=== PATIENT | female | born 1935 | race Caucasian/White ===

== ENCOUNTER 2017-05-16 11:19 | Inpatient (IN) | payer MEDICARE ==
[2017-05-16] MEDS ORDERED: PROVENTIL 2.5 MG/3 ML NEB IH ONE ×2 (11:43→11:56)
[2017-05-16] MEDS: PROVENTIL 2.5 MG/3 ML NEB IH SCH ×2 (12:00→20:14)
[2017-05-16] MEDS ORDERED: FEVERALL 650 MG PR PRN (12:03)
[2017-05-16] MEDS ORDERED: Colace 100 MG PO PRN (12:03)
[2017-05-16 12:05] LABS: A-aADO2 114; ABG HEMOGLOBIN 15.6; ABG POTASSIUM 4.6 (3.5-5.1); ARTERIAL BLD GAS O2 SATURATION 99.7 % (95-100); ARTERIAL BLOOD GAS BASE EXCESS -0.3 (-2.0-2.0); ARTERIAL BLOOD GAS FIO2 40 %; ARTERIAL BLOOD GAS PCO2 38 mmHg (35-45); ARTERIAL BLOOD GAS PO2 124 mmHg (75-100); ARTERIAL BLOOD GAS pH 7.41 (7.35-7.45); CARBOXYHEMOGLOBIN 1.7 % THgb (0.0-6.9); HCO3- 24.1 (22-28); HGB O2 SAT 96.8 g/dF (94-100); Methhemoglobin 1.1 % (1.4-1.5); paO2 pAO1 0.52
[2017-05-16 12:06] LABS: ABG SITE LEFT RADIAL; ALLEN TEST OK? YES
--- NOTE | 2017-05-16 12:12 | PCM.HP.ADD ---
Addendum to History & Physical - History & Physical Addendum Addendum to History & Physical: This certifies that the History & Physical in the electronic chart reflects the current health status of the patient. If there are changes in the H&P these changes/exceptions are listed as follows.
[2017-05-16] MEDS ORDERED: Sodium Chloride 0.9% 1000 ML 1,000 ML IV SCH (12:15)
--- NOTE | 2017-05-16 12:50 | XRAY ---
Indication: Short of breath. Comparison: August 28, 2014. PA/lateral chest unchanged again demonstrating chronic left hemidiaphragm elevation with adjacent lung atelectasis/scarring and incidental scattered calcified granulomas. Heart is not enlarged. Bony thorax intact again with mild osteopenia and degenerative changes. No new/acute findings. Impression: Stable nonacute chest with chronic features.
[2017-05-16 12:59] LABS: ALBUMIN 3.9 g/dL (3.5-5.0); BILIRUBIN,TOTAL 0.4 mg/dL (0.2-1.3); Calcium 9.9 mg/dL (8.4-10.2); Creatinine 1 1.12 mg/dL (0.52-1.04); Potassium 4.3 mmol/L (3.5-5.1); Total Protein 7.4 g/dL (6.3-8.2)
[2017-05-16 13:10] LABS: Hematocrit 47.5 % (35-47); Hemoglobin 15.3 gm/dl (12.0-16.0); Mean Cell Volume 91.9 fl (78-100); Mean Corpuscular Hemoglobin 29.6 pg (26-32); Mean Corpuscular Hgb Concent. 32.2 g/dl (32-36); Mean Platelet Volume 10.7 fl (6-9.5); Platelet Count 260 K/mm3 (150-450); Red Blood Count 5.17 M/mm3 (4.1-5.4); Red Cell Distribution Width 14.3 % (11.5-14.0); White Blood Count 11.8 K/mm3 (4.0-10.5)
[2017-05-16] MEDS ORDERED: PROVENTIL 2.5 MG/3 ML NEB IH PRN (13:12)
[2017-05-16 13:14] LABS: Basophil 1 % (0.0-1.0); Eosinophil 2 % (0.00-3.0); Lymphocytes 4 % (24-44); Monocyte 7 % (0.0-12.0); Neutrophils 86 % (36.0-66.0); Platelet Estimate NORMAL (NORMAL); Total Cells Counted 100
[2017-05-16] MEDS ORDERED: Nitrostat 0.4 MG Tablet SL PRN (13:46)
[2017-05-16] MEDS ORDERED: MEDICATION INTERVENTION MC SCH (14:00)
[2017-05-16] MEDS: ENOXAPARIN SODIUM SQ SCH (14:50)
[2017-05-16] MEDS: Catapres 0.1 MG PO SCH ×2 (14:50→22:43)
[2017-05-16 14:58] LABS: Lactic Acid 2.1 (0.4-2.0)
[2017-05-16 19:03] LABS: Appearance CLEAR (CLEAR)
[2017-05-16 19:04] LABS: Glucose NEGATIVE (NEGATIVE); Ketones NEGATIVE (NEGATIVE); Leukocyte Esterase 2+ (NEGATIVE); Nitrite NEGATIVE (NEGATIVE); Protein,Urine Dip NEGATIVE (Negative); Urobilinogen NORMAL mg/dL (0-1)
[2017-05-16 19:05] LABS: Bilirubin NEGATIVE (NEGATIVE); Blood TRACE HEMOLYZED Ery/ul (0-5)
[2017-05-16 19:06] LABS: Bacteria RARE /HPF (NEGATIVE); Epithelial Cells FEW /HPF (FEW); RBC 0-2 /HPF (0-2)
[2017-05-16] MEDS: Advair Hfa 115/21 Common canister IH SCH (20:25)
[2017-05-16] MEDS ORDERED: VITAMIN D3 PO SCH (22:00)
[2017-05-16] MEDS ORDERED: NON-FORMULARY ITEM (Mometasone/Formoterol [Dulera 200 Mcg/5 Mcg Inhaler] 2 PUFF) IH SCH (22:00)
[2017-05-16] MEDS ORDERED: CALCIUM CARBONATE PO SCH (22:00)
[2017-05-16] MEDS: ceLEXa 20 MG PO SCH (22:43)
[2017-05-16] MEDS: EFFEXOR 37.5 MG PO SCH (22:43)
[2017-05-16] MEDS: Calcium 500MG W/Vit D Tablet PO SCH (22:43)
[2017-05-17] MEDS: PROVENTIL 2.5 MG/3 ML NEB IH SCH ×4 (02:09→19:33)
[2017-05-17] MEDS: Advair Hfa 115/21 Common canister IH SCH ×2 (07:10→19:30)
[2017-05-17] MEDS ORDERED: DELTASONE 10 MG PO SCH (10:00)
[2017-05-17] MEDS ORDERED: NON-FORMULARY ITEM (Pravastatin Sodium [Pravastatin Sodium] 40 MG) PO SCH (10:00)
[2017-05-17] MEDS ORDERED: NON-FORMULARY ITEM (Cholecalciferol (Vitamin D3) [Vitamin D3] 2,000 UNIT) PO SCH (10:00)
[2017-05-17] MEDS: ceLEXa 20 MG PO SCH ×2 (11:18→21:51)
[2017-05-17] MEDS: Catapres 0.1 MG PO SCH ×3 (11:18→21:51)
[2017-05-17] MEDS: EFFEXOR 37.5 MG PO SCH ×2 (11:18→21:51)
[2017-05-17] MEDS: ZOCOR 20MG PO SCH (11:19)
[2017-05-17] MEDS: Lopressor 25MG Tab PO SCH (11:20)
[2017-05-17] MEDS: Calcium 500MG W/Vit D Tablet PO SCH ×2 (11:21→22:12)
[2017-05-17] MEDS: ECOTRIN 81 MG PO SCH (11:21)
[2017-05-17] MEDS: ENOXAPARIN SODIUM SQ SCH (11:22)
[2017-05-17] MEDS: ROCEPHIN 1 Gm-D5w 50 ml Bag** 1 G/50 ML IVPB IV SCH (11:22)
[2017-05-17] MEDS: solu-MEDROL 40 MG IV SCH ×2 (11:28→21:55)
[2017-05-17] MEDS: VITAMIN D PO SCH (11:41)
--- NOTE | 2017-05-17 11:52 | PCM.NOTE ---
Date and Time: 05/17/17 1151 Subjective Assessment: doing little - Review of Systems Constitutional: No Fever, No Chills Eyes: No Symptoms Ears, Nose, & Throat: No Symptoms Respiratory: No Cough, No Short Of Breath Cardiac: No Chest Pain, No Edema, No Syncope Abdominal/Gastrointestinal: No Abdominal Pain, No Nausea, No Vomiting, No Diarrhea Genitourinary Symptoms: No Dysuria Musculoskeletal: No Back Pain, No Neck Pain Skin: No Rash Neurological: No Dizziness, No Focal Weakness, No Sensory Changes Psychological: No Symptoms Endocrine: No Symptoms Hematologic/Lymphatic: No Symptoms Immunological/Allergic: No Symptoms Objective Exam General Appearance: no apparent distress, alert Neurologic Exam: alert, oriented x 3, cooperative, normal mood/affect, nml cerebellar function, sensation nml, No motor deficits Skin Exam: normal color, warm, dry Eye Exam: PERRL, EOMI, eyes nml inspection Ears, Nose, Throat Exam: normal ENT inspection, pharynx normal, moist mucous membranes Neck Exam: normal inspection, non-tender, supple, full range of motion Respiratory Exam: normal breath sounds, lungs clear, No respiratory distress Cardiovascular Exam: regular rate/rhythm, normal heart sounds Gastrointestinal/Abdomen Exam: soft, No tenderness, No mass Extremity Exam: normal inspection, normal range of motion Back Exam: normal inspection, normal range of motion, No CVA tenderness, No vertebral tenderness Pelvic Exam: deferred Rectal Exam: deferred OBJECTIVE DATA Vital Signs: Vital Signs - 24 hr Temp Pulse Resp BP Pulse Ox 05/17/17 09:00 18 05/17/17 08:41 95 05/17/17 07:40 97.9 F 80 18 166/74 97 05/17/17 07:10 71 18 95 05/17/17 05:00 18 05/17/17 04:00 97.9 F 86 20 123/75 94 L 05/17/17 02:00 72 20 93 L 05/17/17 01:00 20 05/17/17 00:00 97.9 F 72 20 175/86 95 05/16/17 21:00 18 05/16/17 20:25 62 22 97 05/16/17 20:00 97.9 F 67 18 140/73 93 L 05/16/17 17:00 22 05/16/17 16:00 98.1 F 68 16 111/65 95 05/16/17 13:00 16 96 05/16/17 12:00 96.1 F 68 24 111/59 97 05/16/17 11:55 96.1 F 64 26 H 111/59 97 Oxygen-Last 24 hours O2 Percentage 2 Liters = 28% O2 Percentage 2 Liters = 28% O2 Percentage 2 Liters = 28% O2 Percentage 2 Liters = 28% O2 Percentage 2 Liters = 28% O2 Percentage 2 Liters = 28% O2 Percentage 2 Liters = 28% Pain Assessment - Last Documented Pain Scale Used FLACC Intake and Output: Intake & Output 05/14/17 05/15/17 05/16/17 05/17/17 11:59 11:59 11:59 11:59 Intake Total 1790 Output Total 1300 Balance 490 Weight 69.4 kg Lab Results: Lab Results-Last 24 Hours 05/16/17 05/16/17 05/16/17 Range/Units 11:55 12:03 12:10 WBC 11.8 H (4.0-10.5) K/mm3 RBC 5.17 (4.1-5.4) M/mm3 Hgb 15.3 (12.0-16.0) gm/dl Hct 47.5 H (35-47) % MCV 91.9 (78-100) fl MCH 29.6 (26-32) pg MCHC 32.2 (32-36) g/dl RDW 14.3 H (11.5-14.0) % Plt Count 260 (150-450) K/mm3 MPV 10.7 H (6-9.5) fl Gran % RESIDENTIAL AIDE Eos # (Auto) RESIDENTIAL AIDE Absolute Lymphs (auto) RESIDENTIAL AIDE Absolute Monos (auto) RESIDENTIAL AIDE Lymphocytes % RESIDENTIAL AIDE Monocytes % RESIDENTIAL AIDE Eosinophils % RESIDENTIAL AIDE Basophils % RESIDENTIAL AIDE Absolute Granulocytes RESIDENTIAL AIDE Segmented Neutrophils 86 H (36.0-66.0) % Lymphocytes (Manual) 4 L (24-44) % Monocytes (Manual) 7 (0.0-12.0) % Eosinophils (Manual) 2 (0.00-3.0) % Basophils (Manual) 1 (0.0-1.0) % Basophils # RESIDENTIAL AIDE Differential Comment NORMAL Platelet Estimate NORMAL (NORMAL) Puncture Site LEFT RADIAL pCO2 38 (35-45) mmHg pO2 124 H* (75-100) mmHg Base Excess -0.3 (-2.0-2.0) O2 Saturation 96.8 (94-100) g/dF ABG pH 7.41 (7.35-7.45) ABG HCO3 24.1 (22-28) ABG O2 Sat (Measured) 99.7 (95-100) % Reynaldo Test YES A-a Gradient 114 a/A Ratio 0.52 Hemoglobin 15.6 Carboxyhemoglobin 1.7 (0.0-6.9) % THgb Methemoglobin 1.1 L (1.4-1.5) % Potassium 4.6 4.3 (3.5-5.1) Temperature 37.0 C POC O2 Flow Rate 40 % Sodium 139 (137-145) mmol/L Chloride 100 (98-107) mmol/L Carbon Dioxide 28 (22-30) mmol/L Anion Gap 15.0 (5-15) MEQ/L BUN 12 (7-17) mg/dL Creatinine 1.12 H (0.52-1.04) mg/dL Estimated GFR 49.6 ML/MIN Glucose 106 (74-106) mg/dL Lactic Acid 3.0 H (0.4-2.0) Calcium 9.9 (8.4-10.2) mg/dL Total Bilirubin 0.40 (0.2-1.3) mg/dL AST 22 (14-36) U/L ALT 19 (0-35) U/L Alkaline Phosphatase 53 (38-126) U/L NT-Pro-B Natriuret Pep 322 (0-1800) pg/mL Serum Total Protein 7.4 (6.3-8.2) g/dL Albumin 3.9 (3.5-5.0) g/dL Ur Collection Type Urine Color (YELLOW) Urine Appearance (CLEAR) Urine pH (5-6) Ur Specific [place] (1.005-1.025) Urine Protein (Negative) Urine Ketones (NEGATIVE) Urine Blood (0-5) Hans/ul Urine Nitrite (NEGATIVE) Urine Bilirubin (NEGATIVE) Urine Urobilinogen (0-1) mg/dL Ur Leukocyte Esterase (NEGATIVE) Urine Microscopic RBC (0-2) /HPF Urine Microscopic WBC (0-5) /HPF Ur Epithelial Cells (FEW) /HPF Urine Bacteria (NEGATIVE) /HPF Urine Glucose (NEGATIVE) mg/dL Specimen Received 05/16/17 05/16/17 Range/Units 14:55 18:55 WBC (4.0-10.5) K/mm3 RBC (4.1-5.4) M/mm3 Hgb (12.0-16.0) gm/dl Hct (35-47) % MCV (78-100) fl MCH (26-32) pg MCHC (32-36) g/dl RDW (11.5-14.0) % Plt Count (150-450) K/mm3 MPV (6-9.5) fl Gran % Eos # (Auto) Absolute Lymphs (auto) Absolute Monos (auto) Lymphocytes % Monocytes % Eosinophils % Basophils % Absolute Granulocytes Segmented Neutrophils (36.0-66.0) % Lymphocytes (Manual) (24-44) % Monocytes (Manual) (0.0-12.0) % Eosinophils (Manual) (0.00-3.0) % Basophils (Manual) (0.0-1.0) % Basophils # Differential Comment Platelet Estimate (NORMAL) Puncture Site pCO2 (35-45) mmHg pO2 (75-100) mmHg Base Excess (-2.0-2.0) O2 Saturation (94-100) g/dF ABG pH (7.35-7.45) ABG HCO3 (22-28) ABG O2 Sat (Measured) (95-100) % Reynaldo Test A-a Gradient a/A Ratio Hemoglobin Carboxyhemoglobin (0.0-6.9) % THgb Methemoglobin (1.4-1.5) % Potassium (3.5-5.1) Temperature C POC O2 Flow Rate % Sodium (137-145) mmol/L Chloride (98-107) mmol/L Carbon Dioxide (22-30) mmol/L Anion Gap (5-15) MEQ/L BUN (7-17) mg/dL Creatinine (0.52-1.04) mg/dL Estimated GFR ML/MIN Glucose (74-106) mg/dL Lactic Acid 2.1 H (0.4-2.0) Calcium (8.4-10.2) mg/dL Total Bilirubin (0.2-1.3) mg/dL AST (14-36) U/L ALT (0-35) U/L Alkaline Phosphatase (38-126) U/L NT-Pro-B Natriuret Pep (0-1800) pg/mL Serum Total Protein (6.3-8.2) g/dL Albumin (3.5-5.0) g/dL Ur Collection Type CCMS Urine Color YELLOW (YELLOW) Urine Appearance CLEAR (CLEAR) Urine pH 7.0 (5-6) Ur Specific [place] 1.010 (1.005-1.025) Urine Protein NEGATIVE (Negative) Urine Ketones NEGATIVE (NEGATIVE) Urine Blood TRACE HEMOLYZED (0-5) Hans/ul Urine Nitrite NEGATIVE (NEGATIVE) Urine Bilirubin NEGATIVE (NEGATIVE) Urine Urobilinogen NORMAL (0-1) mg/dL Ur Leukocyte Esterase 2+ (NEGATIVE) Urine Microscopic RBC 0-2 (0-2) /HPF Urine Microscopic WBC 5-10 (0-5) /HPF Ur Epithelial Cells FEW (FEW) /HPF Urine Bacteria RARE (NEGATIVE) /HPF Urine Glucose NEGATIVE (NEGATIVE) mg/dL Specimen Received T@[id number] Radiology Exams: Radiology Procedures Category Date Time Status CHEST 2 VIEWS (PA AND LAT) Stat Exams 05/16/17 12:31 Completed ECHO W/2D AND DOPPLER [US] Routine Exams 05/16/17 12:05 Taken Multi-Disciplinary Progress Notes: Multi-Disciplinary Progress Notes 05/16/17 20:23 Respiratory Note by Valeria Miller pt's family took her dulera home. changed to advair 115/21 bid. pt was fine with that. Initialized on 05/16/17 20:23 - END OF NOTE Assessment/Plan (1) COPD exacerbation Current Visit: Yes Status: Acute Code(s): J44.1 - CHRONIC OBSTRUCTIVE PULMONARY DISEASE W (ACUTE) EXACERBATION (2) HTN (hypertension) Current Visit: Yes Status: Acute Qualifiers: Hypertension type: essential hypertension Qualified Code(s): I10 - Essential (primary) hypertension Code(s): I10 - ESSENTIAL (PRIMARY) HYPERTENSION
--- NOTE | 2017-05-17 14:50 | XRAY ---
Indication: Difficulty swallowing. Patient choked on Jell-O this a.m. Single contrast esophagram performed in the anterior, oblique, and lateral plane. No miss swallow or aspiration. Esophagus is normal in course and caliber without focal stricture, ulceration, or filling defect. Barium freely emptied into the stomach. No hiatal hernia. Impression: Negative esophagram. Approximately 0.4 minute fluoroscopy used.
[2017-05-18] MEDS: PROVENTIL 2.5 MG/3 ML NEB IH SCH ×3 (01:54→13:04)
[2017-05-18] MEDS: Advair Hfa 115/21 Common canister IH SCH (07:06)
[2017-05-18] MEDS: ROCEPHIN 1 Gm-D5w 50 ml Bag** 1 G/50 ML IVPB IV SCH (09:54)
[2017-05-18] MEDS: ENOXAPARIN SODIUM SQ SCH (09:54)
[2017-05-18] MEDS: solu-MEDROL 40 MG IV SCH (09:55)
--- NOTE | 2017-05-18 11:25 | PCM.NOTE ---
Date and Time: 05/18/17 1123 Subjective Assessment: still short of breath, barrium swollow negative - Review of Systems Constitutional: No Fever, No Chills Eyes: No Symptoms Ears, Nose, & Throat: No Symptoms Respiratory: No Cough, No Short Of Breath Cardiac: No Chest Pain, No Edema, No Syncope Abdominal/Gastrointestinal: No Abdominal Pain, No Nausea, No Vomiting, No Diarrhea Genitourinary Symptoms: No Dysuria Musculoskeletal: No Back Pain, No Neck Pain Skin: No Rash Neurological: No Dizziness, No Focal Weakness, No Sensory Changes Psychological: No Symptoms Endocrine: No Symptoms Hematologic/Lymphatic: No Symptoms Immunological/Allergic: No Symptoms Objective Exam General Appearance: no apparent distress, alert Neurologic Exam: alert, oriented x 3, cooperative, normal mood/affect, nml cerebellar function, sensation nml, No motor deficits Skin Exam: normal color, warm, dry Eye Exam: PERRL, EOMI, eyes nml inspection Ears, Nose, Throat Exam: normal ENT inspection, pharynx normal, moist mucous membranes Neck Exam: normal inspection, non-tender, supple, full range of motion Respiratory Exam: normal breath sounds, lungs clear, No respiratory distress Cardiovascular Exam: regular rate/rhythm, normal heart sounds Gastrointestinal/Abdomen Exam: soft, No tenderness, No mass Extremity Exam: normal inspection, normal range of motion Back Exam: normal inspection, normal range of motion, No CVA tenderness, No vertebral tenderness Pelvic Exam: deferred Rectal Exam: deferred OBJECTIVE DATA Vital Signs: Vital Signs - 24 hr Temp Pulse Resp BP Pulse Ox 05/18/17 09:00 22 05/18/17 08:00 98 F 72 22 188/95 94 L 05/18/17 07:00 72 18 94 L 05/18/17 05:00 18 05/18/17 04:00 98.0 F 76 20 193/91 92 L 05/18/17 01:55 69 18 92 L 05/18/17 01:00 18 05/17/17 23:42 98.0 F 75 18 144/80 93 L 05/17/17 21:00 17 05/17/17 20:00 97.9 F 74 17 189/82 95 05/17/17 19:30 69 18 96 05/17/17 16:00 97.6 F 73 20 137/71 92 L 05/17/17 13:29 78 18 96 05/17/17 13:00 20 05/17/17 12:00 98.2 F 88 22 172/88 92 L Oxygen-Last 24 hours O2 Percentage 2 Liters = 28% O2 Percentage 2 Liters = 28% O2 Percentage 2 Liters = 28% O2 Percentage 2 Liters = 28% O2 Percentage 2 Liters = 28% O2 Percentage 2 Liters = 28% Pain Assessment - Last Documented Pain Intensity 6 Pain Scale Used 0-10 Pain Scale Intake and Output: Intake & Output 05/15/17 05/16/17 05/17/17 05/18/17 11:59 11:59 11:59 11:59 Intake Total 1790 1380 Output Total 1300 2300 Balance 490 -920 Weight 69.4 kg Radiology Exams: Radiology Procedures Category Date Time Status CHEST 2 VIEWS (PA AND LAT) Stat Exams 05/16/17 12:31 Completed ECHO W/2D AND DOPPLER [US] Routine Exams 05/16/17 12:05 Taken ESOPHOGRAM [BARIUM SWALLOW ESOPHOGRAM] Urgent Exams 05/17/17 14:37 Completed MODIFIED BARIUM SWALLOW EXAM Urgent Exams 05/18/17 11:00 Ordered Assessment/Plan (1) COPD exacerbation Current Visit: Yes Status: Acute Code(s): J44.1 - CHRONIC OBSTRUCTIVE PULMONARY DISEASE W (ACUTE) EXACERBATION (2) HTN (hypertension) Current Visit: Yes Status: Acute Qualifiers: Hypertension type: essential hypertension Qualified Code(s): I10 - Essential (primary) hypertension Code(s): I10 - ESSENTIAL (PRIMARY) HYPERTENSION (3) Odynophagia Current Visit: Yes Status: Acute Code(s): R13.10 - DYSPHAGIA, UNSPECIFIED
[2017-05-18 12:23] VITALS: BP 172/84
[2017-05-18] MEDS: ECOTRIN 81 MG PO SCH (12:40)
[2017-05-18] MEDS: ceLEXa 20 MG PO SCH (12:40)
[2017-05-18] MEDS: VITAMIN D PO SCH (12:40)
[2017-05-18] MEDS: Calcium 500MG W/Vit D Tablet PO SCH (12:41)
[2017-05-18] MEDS: Lopressor 25MG Tab PO SCH (12:41)
[2017-05-18] MEDS: ZOCOR 20MG PO SCH (12:41)
[2017-05-18] MEDS: EFFEXOR 37.5 MG PO SCH (12:41)
[2017-05-18] MEDS: Catapres 0.1 MG PO SCH (12:41)
[2017-05-18 13:14] VITALS: PULSE 81; O2SAT 95
--- NOTE | 2017-05-18 13:17 | CONS ---
CONSULT DATE: 05/18/2017 HISTORY: Comfort Reynoso is an 82 year-old pleasant woman known to me seen about four months ago in January, with history of obstructive airway disease, who has been admitted with shortness of breath. According to the patient's daughter she stopped using nebulizer at home leading to increased secretions, cough and chest congestion. The patient also was experiencing some dysphagia. She had a barium swallow performed which was negative. The patient was restarted back on bronchodilators since admission and she does report significant improvement with resolution of chest symptoms. The patient has been noted to have low oxygen saturation and has supplemental oxygen at home although she is currently refusing this on account of cost. I have discussed with rn case manager hospice and discussed it with the patient and family. PAST MEDICAL HISTORY: Positive for history of chronic obstructive pulmonary disease, coronary artery disease, hyperlipidemia, depression, cataract, hypertension. PAST SURGICAL HISTORY: Hysterectomy, removal of right breast lump, cataract surgery in right eye. PERSONAL AND SOCIAL HISTORY: The patient lives with her daughter. She is a nonsmoker. MEDICATIONS: Home and current medications are reviewed. ALLERGIES: Allergies noted. PHYSICAL EXAMINATION: This is an elderly woman who appears fairly comfortable at rest. Vital signs are noted. HEENT: Normocephalic. Pupils are reactive. Oral exam unremarkable. NECK: Supple. CVS: First and second heart sounds are normal, regular, rhythmic. RESPIRATORY: Shows diminished breath sounds, occasional rhonchi heard. ABDOMEN: Soft. No significant edema is noted. LABORATORY DATA AND TESTS: X-rays reviewed which are unremarkable. ASSESSMENT: This is an 82 year old pleasant woman admitted with: 1) Chronic obstructive pulmonary disease with exacerbation largely due to noncompliance with medications. 2) Hypoxemia qualifying for home oxygen therapy. 3) Coronary artery disease. 4) General debilitation. RECOMMENDATIONS: The patient has clinically being doing well, need for continued use of bronchodilator was stressed. Need for supplemental oxygen was discussed as well. Will have case management help patient if possible from financial standpoint. Will check D-dimer given relative sedentary lifestyle. She is currently on deep venous thrombosis prophylaxis. If D-dimer is negative she can be seen as outpatient follow up. If positive will require CT and venous Doppler's. Follow up with me in two weeks or earlier if needed. Otherwise resume home medications upon discharge. Thank you for allowing me to participate in the care of Comfort Reynoso.
--- NOTE | 2017-05-18 15:03 | XRAY ---
Indication: Difficulty swallowing. Modified barium swallow study was performed by the Department of speech therapy with fluoroscopic assistance provided. Patient ingested multiple consistencies of liquids and solids. Full report and recommendations will be reported separately. Approximately 2 minute 8 seconds fluoroscopy used.
--- NOTE | 2017-05-19 07:41 | ECHO ---
Transthoracic echocardiographic examination and color Doppler was done on 05/16/2017. INDICATION: Shortness of breath. IMPRESSION: 1) NO DEFINITE REGIONAL WALL MOTION ABNORMALITY. ESTIMATED GLOBAL LEFT VENTRICULAR EJECTION FRACTION OF AROUND 50 TO 60%. 2) TRACE MITRAL REGURGITATION. 3) LEFT VENTRICULAR HYPERTROPHY. 4) LEFT VENTRICULAR DIASTOLIC DYSFUNCTION. The left ventricle is partially visualized. In the four chamber view the left ventricular ejection fraction is around 50 to 60%. There is concentric left ventricular hypertrophy. The mitral valve is seen and this opens adequately. There is trace mitral regurgitation. Left atrium is normal. The tissue Doppler study of the lateral mitral annulus is suggestive of left ventricular diastolic dysfunction. The aortic valve was not well visualized. The right side chambers are also not well visualized.
== END 2017-05-18 15:25 | disposition home or self-care (01) | DRG 192 ==
LOC: MED SURG 11:29 → OBSVTOIN 05-17 11:51
PROVIDERS: ADMIT General Practice; ATTEND General Practice
DX: J44.1 Chronic obstructive pulmonary disease with (acute) exacerbation (principal); I10 Essential (primary) hypertension; R09.02 Hypoxemia; R13.10 Dysphagia, unspecified; R10.13 Epigastric pain; I25.10 Atherosclerotic heart disease of native coronary artery without angina pectoris; F32.9 Major depressive disorder, single episode, unspecified; Z99.81 Dependence on supplemental oxygen; E78.5 Hyperlipidemia, unspecified; Z79.01 Long term (current) use of anticoagulants; R53.81 Other malaise
CPT/HCPCS: 36415; 36600; 71046; 74220; 74230; 80053; 81000; 82375; 82803; 83605; 83880; 85025; 85379; 87040; 92611; 93005; 93268; 93306; 94150; 94640; 94760; J7609; J0696; J1650; J2920; A9270-GY; G0378

== ENCOUNTER 2017-07-18 23:17 | Emergency (ER) | payer MEDICARE ==
[2017-07-18 23:34] VITALS: O2SAT 100
[2017-07-18] MEDS ORDERED: NEOSYNEPHRINE 0.5% NASAL SPRAY/DROPS ONE (23:59)
[2017-07-18] MEDS ORDERED: NEOSYNEPHRINE 0.5% NASAL SPRAY/DROPS NS ONE (23:59)
--- NOTE | 2017-07-19 00:03 | ERPHSYRPT ---
- History of Present Illness Time Seen by Provider: 07/18/17 23:53 Source: patient Exam Limitations: no limitations Patient Subjective Stated Complaint: Pt arrives to ER with c/o nosebleed since 2199 stating wears O2 Nasal Cannula and believes either has dried out nose or scratched nose. Pt has not held any pressure whatsoever and has been blowing nose. Pt takes ASA, no other thinners. Triage Nursing Assessment: see above Physician History: This is an 82-year-old white female with history of high blood pressure, myocardial infarction, coronary artery disease, depression. She arrives with complaint of bleeding from the left side of her nose symptoms since 10:00 this evening. She states this is been spontaneous she is not sure whether she scratched her nose or whether her nose was dry from oxygen. Past medical history includes high blood pressure, myocardial infarction, coronary artery disease, cataracts, depression. Past surgical history includes hysterectomy, lump removed from her right breast , cataract surgery. Timing/Duration: today Severity: moderate Modifying Factors: Improves With: nothing Associated Symptoms: other (epistaxis), No nausea, No vomiting, No abdominal pain, No shortness of breath, No heartburn, No diaphoresis, No cough, No chills , No chest pain, No fever, No headaches, No loss of appetite, No malaise, No rash, No syncope, No seizure, No weakness Allergies/Adverse Reactions: No Known Drug Allergies Allergy (Verified 07/18/17 23:34) Home Medications: Albuterol 2.5 mg/3 ml Neb [Proventil 2.5 mg/3 ml Neb] 2.5 mg IH Q6H [History] Albuterol Sulfate [Ventolin Hfa] 18 gm IH Q6H 05/16/17 [History] Aspirin EC 81 mg [Ecotrin 81 mg] 81 mg PO DAILY 05/16/17 [History] Calcium Carbonate/Vitamin D3 [Calcium 500 + Vit D Caplet] 1 each PO BID [History] Cholecalciferol (Vitamin D3) [Vitamin D3] 2,000 unit PO DAILY 05/16/17 [History] Citalopram Hydrobromide [Citalopram HBr] 20 mg PO BID 05/16/17 [History] Clonidine HCl 0.1 mg [Catapres 0.1 MG] 0.1 mg PO TID 05/16/17 [History] Metoprolol Tartrate 25 mg [Lopressor 25MG Tab] 25 mg PO DAILY 05/16/17 [ History] Mometasone/Formoterol [Dulera 200 Mcg/5 Mcg Inhaler] 2 puff IH BID 05/16/17 [ History] Nitroglycerin 0.4 mg Tablet [Nitrostat 0.4 MG Tablet] 0.4 mg SL Q5MIN PRN MR X 3 PRN 05/16/17 [History] Pravastatin Sodium 40 mg PO DAILY 05/16/17 [History] Prednisone 10 mg PO DAILY 05/16/17 [History] Venlafaxine HCl 37.5 mg [Effexor 37.5 mg] 37.5 mg PO BID 05/16/17 [History ] Hx Tetanus, Diphtheria Vaccination/Date Given: No (unsure) Hx Influenza Vaccination/Date Given: No Hx Pneumococcal Vaccination/Date Given: No - Review of Systems Constitutional: No Fever, No Chills Eyes: No Symptoms Ears, Nose, & Throat: Epistaxis, No Ear Pain, No Ear Discharge, No Hearing Changes, No Tinnitus, No Nose Pain, No Nose Congestion, No Nose Discharge, No Sinus Drainage, No Mouth Pain, No Mouth Swelling, No Loose Teeth, No Throat Pain , No Throat Swelling, No Hoarse, No Painful Swallowing, No Snoring, No Stridor Respiratory: No Cough, No Dyspnea Cardiac: No Chest Pain, No Edema, No Syncope Abdominal/Gastrointestinal: No Abdominal Pain, No Nausea, No Vomiting, No Diarrhea Genitourinary Symptoms: No Dysuria Musculoskeletal: No Back Pain, No Neck Pain Skin: No Symptoms Neurological: No Dizziness, No Focal Weakness, No Sensory Changes Psychological: No Symptoms Endocrine: No Symptoms All Other Systems: Reviewed and Negative - Past Medical History Pertinent Past Medical History: Yes Neurological History: No Pertinent History ENT History: No Pertinent History Cardiac History: No Pertinent History Respiratory History: No Pertinent History Endocrine Medical History: No Pertinent History Musculoskeletal History: No Pertinent History GI Medical History: No Pertinent History History: No Pertinent History Psycho-Social History: Depression Female Reproductive Disorders: No Pertinent History - Past Surgical History Past Surgical History: Yes Neuro Surgical History: No Pertinent History Cardiac: No Pertinent History Respiratory: No Pertinent History Gastrointestinal: No Pertinent History Genitourinary: No Pertinent History Musculoskeletal: No Pertinent History Female Surgical History: Hysterectomy Other Surgical History: lump removed from right breast - Social History Smoking Status: Never smoker Exposure to second hand smoke: Yes Drug Use: none Patient Lives Alone: Yes - Female History Hx Now: No - Nursing Vital Signs Nursing Vital Signs: Initial Vital Signs Pulse Rate 70 07/18/17 23:26 Respiratory Rate 26 H 07/18/17 23:26 Blood Pressure 134/84 07/18/17 23:26 O2 Sat by Pulse Oximetry 100 07/18/17 23:26 Pain Scale Pain Intensity 5 - Physical Exam General Appearance: mild distress Eye Exam: PERRL/EOMI, eyes nml inspection Ears, Nose, Throat Exam: TMs normal, pharynx normal, moist mucous membranes, other (bleeding from left naris) Neck Exam: normal inspection, non-tender, supple, full range of motion Respiratory Exam: normal breath sounds, lungs clear, No respiratory distress Cardiovascular Exam: regular rate/rhythm, normal heart sounds, normal peripheral pulses Gastrointestinal/Abdomen Exam: soft, normal bowel sounds, No tenderness, No mass Back Exam: normal inspection, normal range of motion, No CVA tenderness, No vertebral tenderness Extremity Exam: normal inspection, normal range of motion, pelvis stable Neurologic Exam: alert, oriented x 3, cooperative, rat poisoner II-XII nml as tested, normal mood/affect, nml cerebellar function, nml station & gait, sensation nml, No motor deficits Skin Exam: normal color, warm, dry, No rash Lymphatic Exam: No adenopathy SpO2 Interpretation: normal (100%) SpO2: 100 Oxygen Delivery: Room Air - Course Nursing assessment & vital signs reviewed: Yes Ordered Tests: Active Orders 24 hr Category Date Time Status Apply Nose Clip STAT Care 07/18/17 23:59 Active Epistaxis Set Up STAT Care 07/18/17 23:59 Active Medication Summary Discontinued Medications Generic Name Dose Route Start Last Admin Trade Name Freq PRN Reason Stop Dose Admin Phenylephrine HCl 15 ml 07/18/17 23:59 07/19/17 00:03 Neosynephrine 0.5% Nasal [place]/Drops NS 07/19/17 00:00 15 ml STAT ONE Administration Phenylephrine HCl Confirm 07/18/17 23:59 Neosynephrine 0.5% Nasal [place]/Drops Administered 07/19/17 00:00 Dose 15 ml .ROUTE .STK-MED ONE - Progress Progress: improved Progress Note: 07/19/17 01:02 This is a 82-year-old white female with history of high blood pressure, myocardial infarction, coronary artery disease, cataracts, depression Patient arrives somewhat anxious with complaint of bleeding from her left naris since 2200 today. On arrival patient with active bleeding from the left naris. Nasal clip was applied for a short period of time. After this patient was asked to blow her nose and [place]-Synephrine 0.5% was sprayed in the patient's left naris. Clip was reapplied. Patient is doing well now no further bleeding. Will monitor the patient for approximately 15-20 minutes. If no further bleeding Will discharge. If further bleeding will need to use Rhino Rocket. 07/19/17 01:23 Patient with no further bleeding. Will discharge. - Departure Time of Disposition: 01:23 Departure Disposition: Home Clinical Impression: Epistaxis Condition: Fair Critical Care Time: No Referrals: [facility] [Primary Care Provider] - Instructions: Nosebleeds (DC) Additional Instructions: Return home. Do not blow your nose or or pick your nose. [place]-Synephrine 0.5% 2 sprays in the left naris every 4 hours as needed for one to 2 days. Follow-up with your family doctor. Return for acute distress severe symptoms.
[2017-07-19 00:56] VITALS: BP 95/78; PULSE 95
== END 2017-07-19 01:33 | disposition home or self-care (01) ==
LOC: ED 23:17
DX: R04.0 Epistaxis (principal); Z79.899 Other long term (current) drug therapy
CPT/HCPCS: 99283; A9270-GY